=== PATIENT | male | born 1940 | race Caucasian/White ===

== ENCOUNTER 2018-01-27 19:08 | Emergency (ER) | payer MEDICARE, BC ==
[2018-01-27 21:39] LABS: #Basophils 0.1 thou/uL (0.0-0.2); #Eosinphils 0.2 thou/uL (0.0-0.7); #Lymphocytes 2.4 thou/uL (1.20-3.40); #Monocytes 1.6 thou/uL (0.11-0.59); %Basophils 0.3 % (0.0-1.0); %Lymphocytes 14.8 % (21.0-51.0); %Monocytes 9.7 % (0.0-10.0); %Neutrophils 74.2 % (42.0-75.0); Hemoglobin 14.5 g/dL (14.0-18.0); Mean Corpuscular HGB CONC 34.4 g/dL (32.0-36.0); Mean Corpuscular Hemoglobin 33.2 pg (27.0-31.0); Mean Corpuscular Volume 96.6 fL (78.0-98.0); Mean Platelet Volume 8.4 fL (7.4-10.4); Platelet Count 205 thou/uL (130-400); RBC Distribution Width 11.6 % (11.5-14.5); Red Blood Cell (RBC) Count 4.37 mill/uL (4.70-6.10); White Blood Cell (WBC) Count 16.1 thou/uL (4.8-10.8)
[2018-01-27] MEDS ORDERED: Acetaminophen 500 MG TAB ONE (21:40)
[2018-01-27 22:00] LABS: ALT (SGPT) 30 U/L (8-55); AST (SGOT) 36 U/L (5-34); Albumin 4.6 g/dL (3.4-4.8); Alkaline Phosphatase 81 U/L (40-150); Anion Gap 15 mmol/L (10-20); BUN (Urea Nitrogen) 20 mg/dL (8.4-25.7); Bilirubin, Total 0.8 mg/dL (0.2-1.2); Calc. Creatinine Clearance 0 mL/min (70-130); Calcium 9.4 mg/dL (7.8-10.44); Carbon Dioxide 20 mmol/L (23-31); Chloride 109 mmol/L (98-107); Estimated GFR-MDRD 74; Globulin 3.1 g/dL (2.4-3.5); Glucose 86 mg/dL (83-110); Potassium 3.4 mmol/L (3.5-5.1); Protein, Total 7.7 g/dL (5.8-8.1); Sodium 141 mmol/L (136-145)
[2018-01-27] MEDS ORDERED: Potassium Chloride 20 MEQ TAB ONE (23:12)
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
== END 2018-01-27 23:15 | disposition home or self-care (01) ==
LOC: ERS 19:08
DX: S80.812A Abrasion, left lower leg, initial encounter (principal); S80.211A Abrasion, right knee, initial encounter; M25.551 Pain in right hip; M54.9 Dorsalgia, unspecified; M10.9 Gout, unspecified; E78.5 Hyperlipidemia, unspecified; I10 Essential (primary) hypertension; Z87.891 Personal history of nicotine dependence; V45.6XXA Car passenger injured in collision with railway train or railway vehicle in traffic accident, initial encounter
CPT/HCPCS: 36415; 70450; 71045; 72125; 72128; 72170; 80053; 85025; J2270

== ENCOUNTER 2019-12-09 09:06 | Outpatient (CLI) | payer MEDICARE, BC, OTHER ==
[2019-12-10 11:00] LABS: SARS-CoV-2 MS2 Positive; SARS-CoV-2 N Gene Negative; SARS-CoV-2 S Gene Negative; SARS-CoV-2 orf1ab Negative
== END 2019-12-09 09:07 | disposition home or self-care (01) ==
LOC: LABBT 09:06
PROVIDERS: ATTEND Ophthalmology Retina Specialist
DX: Z01.812 Encounter for preprocedural laboratory examination (principal); Z11.59 Encounter for screening for other viral diseases; T85.22XA Displacement of intraocular lens, initial encounter
CPT/HCPCS: 87635; U0003

== ENCOUNTER 2020-03-08 06:15 | Day surgery (SDC) | payer MEDICARE, BC ==
[2020-03-04 12:28] VITALS: BMI 29.9
[2020-03-08] MEDS ORDERED: Levofloxacin 500 mg/D5W 100 ml Premix Bag ONE (07:41)
[2020-03-08] MEDS ORDERED: Midazolam HCl 2 mg/2 ml Vial ONE (08:14)
[2020-03-08] MEDS ORDERED: Fentanyl 100 MCG/2 ML VIAL ONE (08:14)
[2020-03-08] MEDS ORDERED: Propofol 1,000 MG/100 ML VIAL IV ONE (08:14)
[2020-03-08] MEDS ORDERED: Oxybutynin 5 MG TAB ONE (09:07)
[2020-03-08] MEDS ORDERED: Ketorolac Tromethamine 30 MG/ML VIAL ONE (09:07)
[2020-03-08] MEDS ORDERED: Phenazopyridine HCl 97.5 MG TABLET ONE (09:08)
--- NOTE | 2020-03-08 10:56 | OP ---
DATE OF PROCEDURE: 03/08/2020 PREOPERATIVE DIAGNOSIS: Enlarged prostate with lower urinary tract symptoms. POSTOPERATIVE DIAGNOSIS: Enlarged prostate with lower urinary tract symptoms. PROCEDURE PERFORMED: Cystoscopy with UroLift implant. ANESTHESIA: TIVA. COMPLICATIONS: None. ESTIMATED BLOOD LOSS: None. SPECIMEN: None. DESCRIPTION OF PROCEDURE: After informed consent, the patient was taken to the operating room, transferred to the table under his own power. Anesthesia was established. A time-out was performed, showing the correct patient, site, and procedure. Preoperative antibiotics were administered. He was prepped and draped in the lithotomy position. A 20-Green[place]ic cystoscope was inserted into the bladder noting normal course and caliber of the urethra with large coapting lateral lobes of the prostate with no appreciable bladder neck obstruction. The bladder was then systematically examined, noting [id number] trabeculation with no mucosal abnormalities. Both ureters normal in appearance. The cystoscopy bridge was replaced with the UroLift delivery device. The first treatment site was the patient's left side approximately 2 cm distal to the bladder neck. The distal tip of the delivery device was then angled laterally approximately 20 degrees of this position to compress the lateral lobe. The trigger was pulled, thereby deploying a needle containing the implant through the prostate. The needle was then retracted, allowing one end of the implant to be delivered to the capsular surface of the prostate. The implant was then tensioned to assure capsular seating and removal of slack monofilament. The device was then angled back towards midline and slowly advanced proximally until cystoscopic verification of the monofilament being centered in the delivery bay. The urethral end piece was then affixed to the monofilament thereby tailoring the size of the implant. Excess filament was then severed. The delivery device was then readvanced into the bladder. The delivery device then replaced the cystoscope and bridge and the implant location and opening effect was confirmed cystoscopically. The same procedure was then repeated on the right side near the bladder neck deploying the second implant. Two additional implants were delivered just proximal to the verumontanum, again one on the right and one on the left side of the prostate following a similar technique. Cystoscopy then revealed persistent area of obstruction in the mid prostate and 2 more implants, 5th and 6th were delivered into the mid prostate. Final cystoscopic view revealed an excellent anterior channel with no persistent obstruction. The bladder was then emptied and refilled to about 150 mL. Total number of implants used 6. The patient was then awoken from anesthesia, transferred back to his hospital bed and taken to PACU in stable condition, where he was discharged home upon recovery. Job ID: [id number]
== END 2020-03-08 12:15 | disposition home or self-care (01) ==
LOC: SDC 06:15
PROVIDERS: ATTEND Urology
PROC: 0T7D8DZ Dilation of Urethra with Intraluminal Device, Via Natural or Artificial Opening Endoscopic (ICD-10-PCS; principal; 2020-03-08)
DX: N40.1 Benign prostatic hyperplasia with lower urinary tract symptoms (principal); R35.0 Frequency of micturition; N39.41 Urge incontinence; R39.12 Poor urinary stream; R39.16 Straining to void; R39.14 Feeling of incomplete bladder emptying; N52.9 Male erectile dysfunction, unspecified; I25.10 Atherosclerotic heart disease of native coronary artery without angina pectoris; I10 Essential (primary) hypertension; E78.5 Hyperlipidemia, unspecified; G47.30 Sleep apnea, unspecified; Z79.82 Long term (current) use of aspirin; Z79.899 Other long term (current) drug therapy
CPT/HCPCS: C1889; J1885; J1956; J2250; J2704; J3010